=== PATIENT | male | born 1965 | race Caucasian/White ===

== ENCOUNTER 2020-11-19 13:24 | Emergency (ER) | payer OTHER ==
[~2020-11-19] VITALS: Ht 172.7 cm; Wt 84.1 kg
[2020-11-19 13:48] VITALS: TEMP 97.5
[2020-11-19] MEDS ORDERED: ZESTRIL 5MG5 MG PO (14:44)
[2020-11-19] MEDS ORDERED: PRINIVIL10 MG PO (15:07)
[2020-11-19 15:33] VITALS: BP 146/90; PULSE 62
== END 2020-11-19 15:41 | disposition home or self-care (01) ==
LOC: COL.ER 13:24
DX: I10 Essential (primary) hypertension (principal); Z76.0 Encounter for issue of repeat prescription; Z91.5 Personal history of self-harm; Z79.899 Other long term (current) drug therapy

== ENCOUNTER 2021-07-28 21:57 | Emergency (ER) | payer SELFPAY ==
[~2021-07-28] VITALS: Ht 175.3 cm; Wt 86.4 kg
[~2021-07-28 21:57] MED LIST: PRINIVIL10 MG PO; ZESTRIL 5MG5 MG PO
[2021-07-28] MEDS ORDERED: ZESTRIL 20MG TA20 MG PO (22:48)
[2021-07-28 23:17] VITALS: BP 165/107; PULSE 79; TEMP 98
== END 2021-07-28 23:23 | disposition home or self-care (01) ==
LOC: COL.ER 21:57
DX: I10 Essential (primary) hypertension (principal); Z95.5 Presence of coronary angioplasty implant and graft; Z79.899 Other long term (current) drug therapy

== ENCOUNTER 2023-12-14 18:18 | Emergency (ER) | payer SELFPAY ==
[~2023-12-14] VITALS: Ht 172.7 cm; Wt 86.4 kg
[~2023-12-14 18:18] MED LIST changes: +ZESTRIL 20MG TA20 MG PO
[2023-12-14 18:30] VITALS: TEMP 98.2
[2023-12-14 19:04] LABS: BASO # 0.1 K/mm3 (0.0-0.2); BASO % 1.2 % (0.0-2.0); EOS # 0.3 K/mm3 (0.0-0.7); EOS % 2.9 % (0.0-4.0); GRAN # 5.2 K/mm3 (1.4-6.5); GRAN % 60.1 % (42.2-75.2); HEMATOCRIT 47.2 % (42.0-52.0); HEMOGLOBIN 16.2 g/dl (13.5-18.0); LYMPH # 2.5 K/mm3 (1.2-3.4); LYMPH % 29.1 % (20.0-51.0); MEAN CELL VOLUME 85 fl (80.0-100.0); MEAN CORPUSCULAR HEMOGLOBIN 29 pg (27-31); MEAN CORPUSCULAR HGB CONC 34 g/dl (33.0-37.0); MEAN PLATELET VOLUME 8.6 fl (7.4-10.4); MONO # 0.6 K/mm3 (0.1-0.6); MONO % 6.5 % (1.7-9.3); PLATELET COUNT 323 K/mm3 (130-400); RED BLOOD COUNT 5.56 M/mm3 (4.20-5.60); REDCELL DISTRIBUTION WIDTH-CV 12.5 % (11.5-14.5)
[2023-12-14 19:23] LABS: ALANINE AMINOTRANSFERASE 36 U/L (0-55); ALBUMIN 4.3 g/dL (3.5-5.0); ALKALINE PHOSPHATASE 93 U/L (40-150); ANION GAP 11 mmol/L (7-16); AST,SGOT 17 U/L (5-34); BILIRUBIN,TOTAL 0.3 mg/dL (0.2-1.2); BLOOD UREA NITROGEN 12 mg/dL (8-26); CALCIUM 9.5 mg/dL (8.4-10.2); CHLORIDE 107 mEq/L (98-107); GLUCOSE 108 mg/dL (70-99); POTASSIUM 3.7 mEq/L (3.5-4.5); SODIUM 140 mEq/L (136-145); TOTAL PROTEIN 7.9 g/dl (6.2-8.1)
[2023-12-14 19:29] LABS: TROPONIN-I < 0.010 ng/mL (0.00-0.033)
[2023-12-14] MEDS ORDERED: cloNIDine 0.1 MG TAB PO ONE (21:15)
[2023-12-15] VITALS: BP 138/111; PULSE 67
== END 2023-12-15 | disposition home or self-care (01) ==
LOC: COL.ER 18:18
PROVIDERS: Nurse Practitioner
DX: R07.89 Other chest pain (principal); T46.5X6A Underdosing of other antihypertensive drugs, initial encounter; T46.6X6A Underdosing of antihyperlipidemic and antiarteriosclerotic drugs, initial encounter; Z91.120 Patient's intentional underdosing of medication regimen due to financial hardship

== ENCOUNTER 2023-12-18 18:58 | Emergency (ER) | payer SELFPAY ==
[~2023-12-18] VITALS: Ht 172.7 cm; Wt 84.1 kg
[2023-12-18 19:16] VITALS: TEMP 98.4
[2023-12-18 20:15] LABS: BASO # 0.1 K/mm3 (0.0-0.2); BASO % 1.1 % (0.0-2.0); EOS # 0.3 K/mm3 (0.0-0.7); EOS % 3.3 % (0.0-4.0); GRAN % 60.7 % (42.2-75.2); HEMATOCRIT 44.2 % (42.0-52.0); HEMOGLOBIN 14.8 g/dl (13.5-18.0); LYMPH # 2.3 K/mm3 (1.2-3.4); LYMPH % 28.3 % (20.0-51.0); MEAN CELL VOLUME 87 fl (80.0-100.0); MEAN CORPUSCULAR HEMOGLOBIN 29 pg (27-31); MEAN CORPUSCULAR HGB CONC 34 g/dl (33.0-37.0); MEAN PLATELET VOLUME 9.2 fl (7.4-10.4); MONO # 0.5 K/mm3 (0.1-0.6); MONO % 6.4 % (1.7-9.3); PLATELET COUNT 295 K/mm3 (130-400); RED BLOOD COUNT 5.09 M/mm3 (4.20-5.60); REDCELL DISTRIBUTION WIDTH-CV 12.6 % (11.5-14.5)
[2023-12-18 20:31] LABS: ALANINE AMINOTRANSFERASE 35 U/L (0-55); ALBUMIN 4.2 g/dL (3.5-5.0); ALKALINE PHOSPHATASE 89 U/L (40-150); ANION GAP 12 mmol/L (7-16); AST,SGOT 19 U/L (5-34); BILIRUBIN,TOTAL 0.3 mg/dL (0.2-1.2); BLOOD UREA NITROGEN 15 mg/dL (8-26); CALCIUM 9.5 mg/dL (8.4-10.2); CHLORIDE 107 mEq/L (98-107); CREATININE, serum 1.18 mg/dL (0.72-1.25); GLUCOSE 95 mg/dL (70-99); POTASSIUM 3.5 mEq/L (3.5-4.5); SODIUM 142 mEq/L (136-145); TOTAL PROTEIN 7.8 g/dl (6.2-8.1)
[2023-12-18 20:38] LABS: TROPONIN-I < 0.010 ng/mL (0.00-0.033)
[2023-12-18] MEDS ORDERED: ZESTRIL 20MG TA20 MG PO (20:54)
[2023-12-18 21:01] VITALS: BP 145/105; PULSE 75
== END 2023-12-18 21:05 | disposition home or self-care (01) ==
LOC: COL.ER 18:58
PROVIDERS: Emergency Medicine
DX: I10 Essential (primary) hypertension (principal); Z79.899 Other long term (current) drug therapy